=== PATIENT | male | born 1955 | race Caucasian/White ===

== ENCOUNTER 2023-08-23 13:00 | Outpatient (CLI) | payer MEDICARE, OTHER ==
--- NOTE | 2023-08-23 15:55 | XRAY Report ---
PROCEDURE: Finger(s) RT INDICATIONS: LACERATION WITHOUT FOREIGN BODY OF RIGHT THUMB TECHNIQUE: AP hand, 2 views of the right first finger(s) acquired. COMPARISON: None. FINDINGS: Bones: No acute fracture or dislocation. There are multiple periarticular bony erosions and lucencie s present including at the first MCP joint, the first IP joint, the second and third DIP joints, and the distal ulna. Soft tissues: No suspicious soft tissue calcifications or masses. IMPRESSION: No acute bony abnormality. If pain persists with conservative management, consider repeat radiographs in 10-14 days or cross-sectional imaging. Multiple periarticular bony erosion suspicious for erosive arthritis. Differential considerations inc lude subchondral cystic change in the setting of osteoarthritis. Reviewed by: Mallory Fong MD on 08/23/2023 3:54 PM PDT Approved by: Mallory Fong MD on 08/23/2023 3:54 PM PDT Station ID: [id number]
== END 2023-08-23 13:15 | disposition home or self-care (01) ==
LOC: DI.N 13:00
PROVIDERS: ATTEND Nurse Practitioner
DX: S61.011A Laceration without foreign body of right thumb without damage to nail, initial encounter (principal); M85.841 Other specified disorders of bone density and structure, right hand; L08.9 Local infection of the skin and subcutaneous tissue, unspecified
CPT/HCPCS: 87070; 87181; 87205

== ENCOUNTER 2023-08-24 10:22 | Emergency (ER) | payer MEDICARE, OTHER ==
[2023-08-24 10:41] VITALS: O2SAT 100
--- NOTE | 2023-08-24 11:13 | ED Physician Documentation ---
PD HPI UPPER EXT INJURY - Stated complaint Stated Complaint: RT THUMB WOUND - Chief complaint Chief Complaint: Laceration - History obtained from History obtained from: Patient - Additonal information Additional information: He is up-to-date on tetanus. He cut his right thumb about a week and a half ago and has had progressive pain and swelling on the dorsal/ulnar side where the cut was. He was seen in the clinic yesterday and it sounds like he got a shot of Rocephin and was started on Bactrim and Keflex but has not improved. No fevers. PD PAST MEDICAL HISTORY - Past Medical History Past Medical History: Yes Cardiovascular: None Respiratory: None Neuro: None GI: None : None HEENT: None Psych: None Musculoskeletal: Chronic back pain Derm: None - Past Surgical History Past Surgical History: Yes General: Cholecystectomy, Hiatal hernia repair Ortho: Arthroscopic surgery - Present Medications Home Medications: Ambulatory Orders Medication Instructions Recorded Confirmed Pregabalin [Lyrica] 25 mg PO HS 10/21/13 08/24/23 Venlafaxine ER [Effexor ER] 75 mg PO DAILY 10/21/13 08/24/23 HYDROcod/ACETAM 5/325 [[place] 5/325] 1 - 2 tab PO Q6H PRN #10 tablet 08/24/23 Meloxicam, Submicronized 10 mg PO DAILY 08/24/23 08/24/23 [Meloxicam] Sulfamethox/Trimeth 800/160 1 tablet PO BID 08/24/23 08/24/23 [Bactrim Ds] cephALEXin [Keflex] 500 mg PO QID 08/24/23 08/24/23 - Allergies Allergies/Adverse Reactions: Allergies Allergy/AdvReac Type Severity Reaction Status Date / Time No Known Drug Allergies Allergy Verified 08/24/23 10:29 - Social History Does the pt smoke?: Yes Smoking Status: Current every day smoker Does the pt drink ETOH?: No Does the pt have substance abuse?: No - Immunizations Immunizations are current?: Yes - POLST Patient has POLST: No PD ED PE NORMAL - Vitals Vital signs reviewed: Yes - General General: Alert and oriented X 3, No acute distress - Extremities Extremities: Other (The area on of the right thumb dorsally especially on the ulnar side is tense and swollen with abscess. There is no pain, redness, or tenderness along the flexor tendon. He is not holding it flexed.) - Psych Psych: Normal mood, Normal affect Results - Vitals Vitals: Vital Signs - 24 hr 08/24/23 10:31 Temperature 36.6 C Heart Rate 66 Respiratory 16 Rate Blood Pressure 160/88 H O2 Saturation 100 Oxygen O2 Source Room air Procedures - Abscess I&D (location) R thumb Preparation: Lidocaine 1% (Digital block with buffered lidocaine with excellent anesthesia) Incision: Incised with scalpel, Purulent drainage, Loculations broken, Packed, Culture obtained Other: Pt tolerated well, Dressing applied PD Medical Decision Making - ED course ED course: He has a posttraumatic abscess of the dorsum of the right thumb. No evidence clinically of flexor tenosynovitis. An I&D was done and another culture was obtained. Culture from yesterday showing gram-positive cocci in clusters and I reviewed the x-ray from yesterday. There are lucencies at the IP joint which is infected and I went and talked with our radiologist onsite today and we both agree that it appears more like a chronic posttraumatic or degenerative change as opposed to an osteomyelitis. Departure - Departure Disposition: 01 Home, Self Care Clinical Impression: Abscess of right thumb Condition: Good Record reviewed to determine appropriate education?: Yes Instructions: ED Abscess IandD Prescriptions: HYDROcod/ACETAM 5/325 [[place] 5/325] 1 - 2 tab PO Q6H PRN #10 tablet PRN Reason: Pain Print Language: Haitian Comments: Continue the antibiotics you are on for now. Would like you to return here tomorrow for wound check and packing removal. Sooner if worse. I sent your prescription electronically to the [facility] in [place]. I am prescribing a short course of narcotic pain medication for you. These are potentially dangerous and addictive medications that should be used carefully. These medications may constipate you. Take an [id number]-[id number] stool softener (docusate) twice daily with plenty of water while taking these medications. If you go 24 hours without a bowel movement, take [id number] miralax, per package instructions. Do not drink or drive while taking these medications. If you received narcotic or sedating medications while in the emergency department, do not drive for 24 hours. Store this medication in a safe, secure place and out of reach of children. It is a violation of federal law to give or sell this medication to another person or to use in a manner other than prescribed. The ED will not refill narcotic prescriptions, including prescriptions lost or stolen. To dispose of unwanted medications: 1. [facility] provides a drop box for medication in pill form only (no liquids) 8:00 am to 4:30 p.m. Wednesday-Wednesday in the lobby of the [facility], [address] [place] [address]. Empty pills into ziplock bag before disposal. Call [phone] for information. 2.[employer] is a free service available to all [facility] residents. Go to [email or web address] Note that many narcotic pain relievers also contain Tylenol/acetaminophen. Please ensure that your total dose of acetaminophen from all sources does not exceed 3 g (3000 mg) per day. Forms: PCP List
[2023-08-24] MEDS: BUFFERED LIDOCAINE 10 ML SYRINGE SUBQ STA (11:16)
[2023-08-24 11:56] VITALS: BP 148/70
== END 2023-08-24 11:50 | disposition home or self-care (01) ==
LOC: ED 10:22
DX: L02.511 Cutaneous abscess of right hand (principal); F17.200 Nicotine dependence, unspecified, uncomplicated; Z79.899 Other long term (current) drug therapy
CPT/HCPCS: 26010; 87070; 87181; 87205

== ENCOUNTER 2023-09-27 12:19 | Emergency (ER) | payer MEDICARE, OTHER ==
--- NOTE | 2023-09-27 13:30 | ED Physician Documentation ---
PD HPI UPPER EXT INJURY - Stated complaint Stated Complaint: R THUMB SWELLING - Chief complaint Chief Complaint: Ext Problem - History obtained from History obtained from: Patient - History of Present Illness Location: Right, Finger (thumb) Type of injury: Other (had infection of thumb that had I&D with oral abx that improved but not fully. Having increased pain and swelling again, with some mild draiange.) Timing - details: Gradual onset, Still present Review of Systems Constitutional: denies: Fever, Chills Neurologic: denies: Focal weakness, Numbness PD PAST MEDICAL HISTORY - Past Medical History Cardiovascular: None Respiratory: None Neuro: None Endocrine/Autoimmune: None GI: None : None HEENT: None Psych: None Musculoskeletal: Chronic back pain Derm: None - Past Surgical History Past Surgical History: Yes General: Cholecystectomy, Hiatal hernia repair Ortho: Arthroscopic surgery - Present Medications Home Medications: Ambulatory Orders Medication Instructions Recorded Confirmed Pregabalin [Lyrica] 25 mg PO HS 10/21/13 08/24/23 Venlafaxine ER [Effexor ER] 75 mg PO DAILY 10/21/13 08/24/23 HYDROcod/ACETAM 5/325 [[place] 5/325] 1 - 2 tab PO Q6H PRN #10 tablet 08/24/23 08/25/23 Meloxicam, Submicronized 10 mg PO DAILY 08/24/23 08/24/23 [Meloxicam] Sulfamethox/Trimeth 800/160 1 tablet PO BID 08/24/23 08/25/23 [Bactrim Ds] cephALEXin [Keflex] 500 mg PO QID 08/24/23 08/24/23 Doxycycline Hyclate 100 mg PO BID 10 Days #20 cap 09/27/23 Meloxicam [Mobic] 7.5 mg PO BID 10 Days #20 tablet 09/27/23 Mupirocin 2% Oint [Bactroban 2% 1 applic TOP TID #15 gm 09/27/23 Oint] - Allergies Allergies/Adverse Reactions: Allergies Allergy/AdvReac Type Severity Reaction Status Date / Time No Known Drug Allergies Allergy Verified 09/27/23 12:41 - Social History Does the pt smoke?: Yes Smoking Status: Current every day smoker Does the pt drink ETOH?: No Does the pt have substance abuse?: No - Immunizations Immunizations are current?: Yes - POLST Patient has POLST: No PD ED PE NORMAL - Vitals Vital signs reviewed: Yes - General General: Alert and oriented X 3, Well developed/nourished - Derm Derm: Normal color, Warm and dry - Extremities Extremities: Other (right thumb with tender, red, swelling. Small hole side of volar distal pad. No proximal red streaking. Not tender through forearm. ) - Neuro Neuro: No motor deficit, No sensory deficit Results - Vitals Vitals: Oxygen O2 Source Room air - Labs Labs: Microbiology 09/27/23 14:47 Wound Culture - Final Abscess Staphylococcus Aureus - Rads (name of study) thumb Relevant Findings:: Prelim report reviewed (soft tissue swelling. osteoarthritis. ), EMP independent interpretation of test PD Medical Decision Making - ED course Complexity details: considered differential (infection of thumb pad, with prior I&D hole still having some mild drainage per pt. Bedside US using water in glove as window did not show fluid collection. Abx without repeat I&D at this time. ), d/w patient Departure - Departure Disposition: 01 Home, Self Care Clinical Impression: Abscess of thumb, right Condition: Stable Record reviewed to determine appropriate education?: Yes Instructions: ED Abscess IandD Follow-Up: PRATEEK STOKES DO [Primary Care Provider] - [facility] [Provider Group] Prescriptions: Mupirocin 2% Oint [Bactroban 2% Oint] 1 applic TOP TID #15 gm Doxycycline Hyclate 100 mg PO BID 10 Days #20 cap Meloxicam [Mobic] 7.5 mg PO BID 10 Days #20 tablet Comments: I did reopen the wound that you would had from the prior abscess treatment. There was a little bit of purulence that came out. I would have you soak this in warm water 2-3 times daily to promote further drainage. You can apply some antibiotic ointment to the area after that. Doxycycline antibiotic twice daily for the next 10 days. Take it with food. Your prior culture on this had grown a Staph aureus that was sensitive to the doxycycline so we can try that as a single agent for antibiotic. The culture from today will result in 2 to 3 days and will change the antibiotic choice if needed based on that. Meanwhile would also go with some anti-inflammatory to help with pain and healing. To that add acetaminophen/Tylenol 4 times daily if needed for pain. Follow-up with the orthopedic clinic for further evaluation and potential opening or debridement if needed., Call for an appointment. Forms: PCP List Discharge Date/Time: 09/27/23 15:29
[2023-09-27] MEDS: DOXYCYCLINE 100 MG TABLET PO STA (14:27)
[2023-09-27] MEDS: NAPROXEN 250 MG TABLET PO STA (14:27)
--- NOTE | 2023-09-27 14:52 | XRAY Report ---
PROCEDURE: Finger(s) RT INDICATIONS: thumb infection/swelling TECHNIQUE: AP hand, 2 views of the first finger(s) acquired. COMPARISON: None. FINDINGS: Bones: No fractures or dislocations. No suspicious bony lesions. Particular osteophyte formation at the interphalangeal joint of the digits. Soft tissues: 2 small calcific versus ossific foci at the posterior aspect of the proximal phalanx of the first digit. Soft tissue swelling adjacent to the first digit posteriorly. IMPRESSION: 1. Soft tissue swelling, consistent with the given history of infection. 2. Osteoarthritis. Reviewed by: Lina Alcantara MD on 09/27/2023 2:50 PM PDT Approved by: Lina Alcantara MD on 09/27/2023 2:50 PM PDT Station ID: [id number]
[2023-09-27 15:38] VITALS: BP 166/87; O2SAT 99
== END 2023-09-27 15:29 | disposition home or self-care (01) ==
LOC: ED 12:19
DX: L02.511 Cutaneous abscess of right hand (principal); F17.200 Nicotine dependence, unspecified, uncomplicated
CPT/HCPCS: 73140; 87070; 87181; 87205; 99284; A9270